=== PATIENT | female | born 1980 | race Caucasian/White ===

== ENCOUNTER 2019-12-10 15:21 | Emergency (ER) | payer OTHER, MEDICAID, SELFPAY ==
[2019-12-10 15:46] VITALS: BP 153/96; PULSE 80; RESP 13; TEMP 36.5; O2SAT 99
--- NOTE | 2019-12-10 16:40 | DI.US.S_ITS ---
PROCEDURE: US PELVIC COMPLETE INDICATIONS: SEVERE VAGINAL BLEEDING TECHNIQUE: Real-time scanning was performed of the pelvic organs, with image documentation. Additional endovaginal scanning was necessary due to incomplete visualization of the adnexal and endometrial structures by transabdominal scanning. COMPARISON: None. FINDINGS: Transabdominal scanning: Limited scanning through the kidneys shows no hydronephrosis. No pathologic free abdominal or pelvic fluid. Endovaginal scanning: Uterus: The uterus is normal in size and measures 9.3 x 4.6 x 6.0 cm. No focal myometrial lesions are identified. The endometrium measures up to approximately 8 mm in maximal combined thickness. No significant fluid is seen within the endometrial canal. An intrauterine contraceptive device appears to be appropriately positioned within the endometrial canal. The cervix is unremarkable. Ovaries: The right ovary measures 3.2 x 1.8 x 1.4 cm. The left ovary measures 2.6 x 1.3 x 1.4 cm. Both ovaries are normal in size. Small follicles are present on both ovaries. No ovarian cysts are evident. However, there are bilateral cystic foci identified within the adnexal regions measuring up to 1.7 cm on the left and 1.9 cm on the right, which are not well evaluated or characterized. IMPRESSION: 1. Unremarkable uterus. 2. The IUD appears to be in appropriate position. 3. Small bilateral adnexal cysts may represent paraovarian cysts versus less likely mild dilatation of the fallopian tubes. Dictated by: Travis Banks M.D. on 12/10/2019 at 16:49 Approved by: Travis Banks M.D. on 12/10/2019 at 16:52
[2019-12-10 18:27] LABS: Add Manual Diff / Slide Review NO; Basophils Absolute Auto 100 /uL (0-100); Basophils Percent Auto 0.8 % (0-2); Eosinophils Absolute Auto 300 /uL (0-450); Eosinophils Percent Auto 2.9 % (2-4); Hematocrit 41.8 % (36-46); Hemoglobin 14.3 g/dL (12.0-16.0); Lymphocytes Absolute Auto 2900 /uL (1100-4500); Lymphocytes Percent Auto 30.3 % (25-40); Mean Corpuscular HGB Conc 34.3 % (30-36); Mean Corpuscular Hemoglobin 30.3 PG (26-34); Mean Corpuscular Volume 88.4 fL (80-100); Monocytes Absolute Auto 800 /uL (0-900); Monocytes Percent Auto 8.3 % (3-14); Neutrophils Absolute Auto 5500 /uL (1500-7000); Neutrophils Percent Auto 57.7 % (50-75); Platelet Count 274 X10^3/uL (150-400); Red Blood Cell Count 4.72 X10^6/uL (4.0-5.2); Red Cell Distribution Width 14.1 % (11.6-14.8); White Blood Cell Count 9.6 X10^3/uL (4.5-11.0)
[2019-12-10 18:34] LABS: Alanine Aminotransferase 20 IU/L (<35); Albumin 4.8 g/dL (3.5-5.0); Albumin Globulin Ratio 1.6 (1.0-2.8); Alkaline Phosphatase 53 U/L (38-126); Aspartate Aminotransferase 28 IU/L (14-36); BUN Creatinine Ratio 23.3 (6-22); Bilirubin Total 0.4 mg/dL (0.2-1.3); Blood Urea Nitrogen 14 mg/dL (7-17); Calcium 9.8 mg/dL (8.4-10.2); Carbon Dioxide 25 mmol/L (22-32); Chloride 103 mmol/L (98-107); Estimated Glomerular Filt Rate > 60.0 mL/min (>60); Glucose 79 mg/dL (70-100); HEMOLYSIS 19 (0-50); Potassium 4.4 mmol/L (3.4-5.1); Sodium 140 mmol/L (137-145); Total Protein 7.8 g/dL (6.3-8.2)
[2019-12-10 18:54] VITALS: BP 136/74; PULSE 77; RESP 16; O2SAT 97
--- NOTE | 2019-12-10 19:17 | ED.FEMALEGU ---
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 She states that she has a copper IUD, and her primary Ob has an ultrasound ordered as she cannot feel her strings and is worried about displacement. She states she had unprotected sex after her PCP appointment. She had her last OB appointment on the of this month, had intercourse a few days later and then started having vaginal bleeding irregularly. She states that at this point she is bleeding through a tampon every 2 hours. She complains of lightheadedness, dizziness and related anxiety. She states that she has some rib pressure, but states that she is not in the emergency department for chest pain and does not want that evaluated. She denies any syncope. She is concerned about the possibility of , but took a negative test at home. Any abdominal pain. She denies any risk of sexually transmitted infections, states that she was just tested for everything 2 weeks ago. Denies any vaginal discharge. Denies any dysuria urgency or frequency Review of Systems <SAMANTHA Bobo - Last Filed: 12/10/19 19:56> Review of Systems Narrative: GENERAL: Denies chills, fatigue, malaise, fever, sweats. HEENT: Denies sinus pain, ear pain, sore throat, difficulty swallowing, dizziness. RESPIRATORY: Denies dyspnea, cough, wheezing, hemoptysis, sputum. CARDIOVASCULAR: Denies chest pain, palpitations, orthopnea, edema, GASTROINTESTINAL: Denies nausea, vomiting, abdominal pain, diarrhea, constipation, melena. : See HPI MUSCULOSKELETAL: denies weakness, joint pain, or bony pain SKIN: Denies rash, skin lesions, or other NEUROLOGIC: Denies weakness, headache, numbness, change in speech, confusion, seizures, incoordination. PSYCHIATRIC: No concerning psychosocial issues. 12 point review of systems is negative except for those stated above Patient History <SAMANTHA Bobo - Last Filed: 12/10/19 19:56> alcohol intake frequency: other Substance Use Type: does not use Exam <Emely KHUSHI Becerra - Last Filed: 12/10/19 19:56> Narrative Exam Narrative: GENERAL: This is a well-nourished, well-developed patient, no acute distress HEAD: Atraumatic. Normocephalic. No temporal or scalp tenderness. EYES: Pupils equal round and reactive. Extraocular motions intact. No scleral icterus. No injection or drainage. ENT: Nose without bleeding, purulent drainage or septal hematoma. Throat without erythema, tonsillar hypertrophy or exudate. Uvula midline. Airway patent. NECK: Trachea midline. No JVD or lymphadenopathy. Supple, nontender, no meningeal signs. CARDIOVASCULAR: Regular rate and rhythm without murmurs, gallops, or rubs. RESPIRATORY: Clear to auscultation. Breath sounds equal bilaterally. No wheezes, rales, or rhonchi. GASTROINTESTINAL: Abdomen soft, non-tender, nondistended. No hepato-splenomegaly, or palpable masses. No guarding. EXTREMITIES: No clubbing, cyanosis, or edema. No joint tenderness, effusion, or edema noted. BACK: Nontender without deformity or crepitance. No flank tenderness. NEURO: AOx3. SKIN: No rash or erythema. Initial Vital Signs Initial Vital Signs: Vital Signs Temperature 97.7 F 12/10/19 15:46 Pulse Rate 80 12/10/19 15:46 Respiratory Rate 13 12/10/19 15:46 Blood Pressure 153/96 H 12/10/19 15:46 Pulse Oximetry 99 12/10/19 15:46 <Neha Huerta DO - Last Filed: 12/11/19 08:04> Initial Vital Signs Initial Vital Signs: Vital Signs Temperature 97.7 F 12/10/19 15:46 Pulse Rate 80 12/10/19 15:46 Respiratory Rate 13 12/10/19 15:46 Blood Pressure 153/96 H 12/10/19 15:46 Pulse Oximetry 99 12/10/19 15:46 Course <Emely KHUSHI Becerra - Last Filed: 12/10/19 19:56> Orders Ordered: ED Orders 12/10/19 16:40 US pelvic complete Stat 12/10/19 18:11 Complete Blood Count AUTO DIFF Stat Comprehensive Metabolic Panel Stat Vital Signs Vital signs: Vital Signs - 8 hr 12/10/19 15:46 12/10/19 18:54 Temperature 97.7 F Pulse Rate 80 77 Respiratory Rate 13 16 Blood Pressure 153/96 H 136/74 Pulse Oximetry 99 97 <Neha Huerta DO - Last Filed: 12/11/19 08:04> Orders Ordered: ED Orders 12/10/19 16:40 US pelvic complete Stat 12/10/19 18:11 Complete Blood Count AUTO DIFF Stat Comprehensive Metabolic Panel Stat Vital Signs Vital signs: Vital Signs - 8 hr 12/10/19 15:46 12/10/19 18:54 Temperature 97.7 F Pulse Rate 80 77 Respiratory Rate 13 16 Blood Pressure 153/96 H 136/74 Pulse Oximetry 99 97 MDM - Female Genitourinary <ALEXANDR Bobo-BC - Last Filed: 12/10/19 19:56> Lab Data Result diagrams: 12/10/19 18:11 12/10/19 18:11 Labs: Lab Results 12/10/19 12/10/19 Range/Units 18:11 18:11 WBC 9.6 (4.5-11.0) X10^3/uL RBC 4.72 (4.0-5.2) X10^6/uL Hgb 14.3 (12.0-16.0) g/dL Hct 41.8 (36-46) % MCV 88.4 (80-100) fL MCH 30.3 (26-34) PG MCHC 34.3 (30-36) % RDW 14.1 (11.6-14.8) % Plt Count 274 (150-400) X10^3/uL Neut % (Auto) 57.7 (50-75) % Lymph % (Auto) 30.3 (25-40) % Howard % (Auto) 8.3 (3-14) % Eos % (Auto) 2.9 (2-4) % Baso % (Auto) 0.8 (0-2) % Neut # (Auto) 5500 (6392-6264) /uL Lymph # (Auto) 2900 (9519-5394) /uL Howard # (Auto) 800 (0-900) /uL Eos # (Auto) 300 (0-450) /uL Baso # (Auto) 100 (0-100) /uL Sodium 140 (137-145) mmol/L Potassium 4.4 (3.4-5.1) mmol/L Chloride 103 (98-107) mmol/L Carbon Dioxide 25 (22-32) mmol/L BUN 14 (7-17) mg/dL Creatinine 0.60 (0.52-1.04) mg/dL Estimated GFR > 60.0 (>60) mL/min BUN/Creatinine Ratio 23.3 H (6-22) Glucose 79 (70-100) mg/dL Calcium 9.8 (8.4-10.2) mg/dL Total Bilirubin 0.4 (0.2-1.3) mg/dL AST 28 (14-36) IU/L ALT 20 (<35) IU/L Alkaline Phosphatase 53 (38-126) U/L Total Protein 7.8 (6.3-8.2) g/dL Albumin 4.8 (3.5-5.0) g/dL Globulin 3.0 (1.7-4.1) g/dL Albumin/Globulin Ratio 1.6 (1.0-2.8) Point of Care Testing Test Results Negative Urine Dip Bedside Urine Glucose Negative Bedside Urine Bilirubin - Negative Bedside Urine Ketone + 15 Urine Specific [place] 1.015 Bedside Urine Occult Blood - Negative Bedside Urine pH 5.5 Bedside Urine Protein - Negative Bedside Urine Urobilinogen - Negative Bedside Urine Nitrite - Negative Bedside Urine Leukocytes - Negative Esterase Imaging Data US - DIRECTOR OF HOME CARE HOSPICE: Radiologist's Impression: [address] [place] [id number] Ultrasound Report Signed Patient: Linda WiseVivian#: [id number] : 1980Acct:[id number] Age/Sex: 39 / FDate of Service: 12/10/19 Loc: ED Accession Number: [id number] Procedure: US pelvic complete Ordering Provider: Emely Becerra- PROCEDURE: US PELVIC COMPLETE INDICATIONS: SEVERE VAGINAL BLEEDING TECHNIQUE: Real-time scanning was performed of the pelvic organs, with image documentation. Additional endovaginal scanning was necessary due to incomplete visualization of the adnexal and endometrial structures by transabdominal scanning. COMPARISON: None. FINDINGS: Transabdominal scanning: Limited scanning through the kidneys shows no hydronephrosis. No pathologic free abdominal or pelvic fluid. Endovaginal scanning: Uterus: The uterus is normal in size and measures 9.3 x 4.6 x 6.0 cm. No focal myometrial lesions are identified. The endometrium measures up to approximately 8 mm in maximal combined thickness. No significant fluid is seen within the endometrial canal. An intrauterine contraceptive device appears to be appropriately positioned within the endometrial canal. The cervix is unremarkable. Ovaries: The right ovary measures 3.2 x 1.8 x 1.4 cm. The left ovary measures 2.6 x 1.3 x 1.4 cm. Both ovaries are normal in size. Small follicles are present on both ovaries. No ovarian cysts are evident. However, there are bilateral cystic foci identified within the adnexal regions measuring up to 1.7 cm on the left and 1.9 cm on the right, which are not well evaluated or characterized. IMPRESSION: 1. Unremarkable uterus. 2. The IUD appears to be in appropriate position. 3. Small bilateral adnexal cysts may represent paraovarian cysts versus less likely mild dilatation of the fallopian tubes. Dictated by: Travis Banks M.D. on 12/10/2019 at 16:49 Approved by: Travis Banks M.D. on 12/10/2019 at 16:52 MDM Narrative Medical decision making narrative: The patient is a 39-year-old female who presents with a chief complaint of irregular vaginal bleeding for the past 9 days mid cycle. She is hemodynamically stable, not tachycardic, not hypotensive. She recently had a complete pelvic workup including Pap smear, STI testing and we do not see the need to repeat that at this point today. She is not anemic on lab work with a hemoglobin of 14. Given her concerns about her IUD placement, as well as severe bleeding, we did obtain an ultrasound which had no acute findings. The patient does not medications to help stop the bleeding. She would rather follow-up with her PCP in the next few days. I discussed at length coming back to the emergency department for any acute concerns. Patient states that she does not want further workup or evaluation given her periodic shortness breath complaints. Discussed at length that she can come back to the ER for any acute concerns. Patient has no questions or concerns upon discharge and states understanding of return precautions as well as follow-up care. <Neha Huerta, DO - Last Filed: 12/11/19 08:04> Lab Data Labs: Lab Results 12/10/19 12/10/19 Range/Units 18:11 18:11 WBC 9.6 (4.5-11.0) X10^3/uL RBC 4.72 (4.0-5.2) X10^6/uL Hgb 14.3 (12.0-16.0) g/dL Hct 41.8 (36-46) % MCV 88.4 (80-100) fL MCH 30.3 (26-34) PG MCHC 34.3 (30-36) % RDW 14.1 (11.6-14.8) % Plt Count 274 (150-400) X10^3/uL Neut % (Auto) 57.7 (50-75) % Lymph % (Auto) 30.3 (25-40) % Howard % (Auto) 8.3 (3-14) % Eos % (Auto) 2.9 (2-4) % Baso % (Auto) 0.8 (0-2) % Neut # (Auto) 5500 (4681-2837) /uL Lymph # (Auto) 2900 (9342-7320) /uL Howard # (Auto) 800 (0-900) /uL Eos # (Auto) 300 (0-450) /uL Baso # (Auto) 100 (0-100) /uL Sodium 140 (137-145) mmol/L Potassium 4.4 (3.4-5.1) mmol/L Chloride 103 (98-107) mmol/L Carbon Dioxide 25 (22-32) mmol/L BUN 14 (7-17) mg/dL Creatinine 0.60 (0.52-1.04) mg/dL Estimated GFR > 60.0 (>60) mL/min BUN/Creatinine Ratio 23.3 H (6-22) Glucose 79 (70-100) mg/dL Calcium 9.8 (8.4-10.2) mg/dL Total Bilirubin 0.4 (0.2-1.3) mg/dL AST 28 (14-36) IU/L ALT 20 (<35) IU/L Alkaline Phosphatase 53 (38-126) U/L Total Protein 7.8 (6.3-8.2) g/dL Albumin 4.8 (3.5-5.0) g/dL Globulin 3.0 (1.7-4.1) g/dL Albumin/Globulin Ratio 1.6 (1.0-2.8) Point of Care Testing Test Results Negative Urine Dip Bedside Urine Glucose Negative Bedside Urine Bilirubin - Negative Bedside Urine Ketone + 15 Urine Specific [place] 1.015 Bedside Urine Occult Blood - Negative Bedside Urine pH 5.5 Bedside Urine Protein - Negative Bedside Urine Urobilinogen - Negative Bedside Urine Nitrite - Negative Bedside Urine Leukocytes - Negative Esterase Discharge Plan Departure Patient Disposition: Home Clinical Impression: Vaginal bleeding Discharge Date/Time: 12/10/19 18:55 Instructions: DI for Vaginal Bleeding, DI for Abnormal Uterine Bleeding Activity Restrictions/Additional Instructions: Your ultrasound shows no acute abnormality Your lab work came back within normal limits Please follow-up with primary care provider. Please come back to the emergency department for any acute concerns Referrals: Dorie Santoyo MD [Primary Care Provider] -
== END 2019-12-10 18:55 | disposition home or self-care (01) ==
PROVIDERS: Emergency Provider Nurse Practitioner Family; PCP Obstetrics & Gynecology
DX: N93.9 Abnormal uterine and vaginal bleeding, unspecified (principal); Z30.431 Encounter for routine checking of intrauterine contraceptive device
CPT/HCPCS: 36415; 76830; 76856; 80053; 81003; 81025; 85025; 99283; 99284

== ENCOUNTER → 2021-07-03 11:06 | Outpatient (CLI) | payer BC, OTHER, MEDICAID, SELFPAY ==
[2021-07-03 13:51] LABS: COVID19 -Nasal RAPID Negative (Negative)
== END ==
PROVIDERS: PCP Registered Nurse; Visit Provider Nurse Practitioner
DX: Z01.812 Encounter for preprocedural laboratory examination (principal); Z20.822 Contact with and (suspected) exposure to COVID-19
CPT/HCPCS: 87635

== ENCOUNTER → 2021-07-03 11:15 | Outpatient (CLI) | payer OTHER, MEDICAID, SELFPAY ==
[2021-07-03 12:28] LABS: Add Manual Diff / Slide Review NO; Basophils Absolute Auto 100 /uL (0-100); Basophils Percent Auto 0.7 % (0-2); Eosinophils Absolute Auto 200 /uL (0-450); Eosinophils Percent Auto 2.6 % (2-4); Hematocrit 39.9 % (36-46); Hemoglobin 13.5 g/dL (12.0-16.0); Lymphocytes Absolute Auto 2800 /uL (1100-4500); Lymphocytes Percent Auto 30.4 % (25-40); Mean Corpuscular HGB Conc 33.9 % (30-36); Mean Corpuscular Hemoglobin 29.8 PG (26-34); Mean Corpuscular Volume 87.8 fL (80-100); Monocytes Absolute Auto 1000 /uL (0-900); Monocytes Percent Auto 11.2 % (3-14); Neutrophils Absolute Auto 5000 /uL (1500-7000); Neutrophils Percent Auto 55.1 % (50-75); Platelet Count 279 X10^3/uL (150-400); Red Blood Cell Count 4.54 X10^6/uL (4.0-5.2); Red Cell Distribution Width 14.3 % (11.6-14.8); White Blood Cell Count 9.1 X10^3/uL (4.5-11.0)
[2021-07-03 12:53] LABS: Alanine Aminotransferase 20 IU/L (<35); Albumin 4.4 g/dL (3.5-5.0); Albumin Globulin Ratio 1.6 (1.0-2.8); Alkaline Phosphatase 66 U/L (38-126); Aspartate Aminotransferase 29 IU/L (14-36); BUN Creatinine Ratio 21.4 (6-22); Bilirubin Total 0.3 mg/dL (0.2-1.3); Blood Urea Nitrogen 12 mg/dL (7-17); Calcium 9.2 mg/dL (8.4-10.2); Carbon Dioxide 25 mmol/L (22-32); Chloride 106 mmol/L (98-107); Cholesterol 188 mg/dL (140-199); Estimated Glomerular Filt Rate > 60.0 mL/min (>60); Globulin 2.8 g/dL (1.7-4.1); Glucose 93 mg/dL (70-100); HDL Cholesterol 44 mg/dL (40-60); HEMOLYSIS < 15 (0-50); LDL Cholesterol Calculated 126 mg/dL (<100); Potassium 4.4 mmol/L (3.4-5.1); Sodium 138 mmol/L (137-145); Total Protein 7.2 g/dL (6.3-8.2); Triglycerides 92 mg/dL (35-150)
== END ==
PROVIDERS: PCP Registered Nurse; Referring Provider Registered Nurse; Visit Provider Registered Nurse
DX: Z01.812 Encounter for preprocedural laboratory examination (principal); R03.0 Elevated blood-pressure reading, without diagnosis of hypertension; F41.9 Anxiety disorder, unspecified; B00.9 Herpesviral infection, unspecified; Z20.822 Contact with and (suspected) exposure to COVID-19; Z82.49 Family history of ischemic heart disease and other diseases of the circulatory system
CPT/HCPCS: 36415; 80053; 80061; 85025; 87635

== ENCOUNTER → 2021-07-04 15:10 | Outpatient (CLI) | payer OTHER, MEDICAID, SELFPAY ==
--- NOTE | 2021-07-04 15:13 | DI.NM.S_ITS ---
PROCEDURE: NM EXERCISE TREADMILL NON NUC COMPARISON: None. INDICATIONS: Family history of heart disease FINDINGS: the patient exercised for 7 minutes and 50 seconds reaching 101% of maximum predicted heart rate and 10.1 METS, DIXIE +11%. Mildly hypertensive response to exercise (resting BP 136/90mmHg, max BP 212/90mmHg). 2/10 chest pain at rest that persisted throughout the study. No ST changes with exercise. IMPRESSION: Low risk, normal treadmill ECG stress test. - Mildly reduced exercise tolerance. - Non-cardiac chest pain throughout the study. - Mildly hypertensive response to exercise (resting BP 136/90mmHg, max BP 212/90mmHg). - Target heart rate achieved. - No prior stress test available for comparison. Dictated by: Hebert Perez MD on 07/04/2021 at 16:10 Approved by: Hebert Perez MD on 07/04/2021 at 16:13
== END ==
PROVIDERS: PCP Registered Nurse; Referring Provider Registered Nurse; Visit Provider Registered Nurse
DX: R07.89 Other chest pain (principal); Z13.6 Encounter for screening for cardiovascular disorders; Z82.49 Family history of ischemic heart disease and other diseases of the circulatory system
CPT/HCPCS: 93017

== ENCOUNTER 2022-01-07 18:51 | Emergency (ER) | payer OTHER, MEDICAID, SELFPAY ==
[2022-01-07] VITALS (10 sets, daily range): BP systolic 129–167; BP diastolic 71–94; PULSE 73–89; RESP 13–24; TEMP 37.2; O2SAT 96–99; BMI 42.5
--- NOTE | 2022-01-07 19:00 | DI.RAD.S_ITS ---
PROCEDURE: XR CHEST 1V INDICATIONS: chest pain TECHNIQUE: One view of the chest was acquired. COMPARISON: None. FINDINGS: Surgical changes and devices: None. Lungs and pleura: Lungs are clear. No pleural effusions or pneumothorax. Mediastinum: Mediastinal contours appear normal. Heart size is normal. Bones and chest wall: No suspicious bony lesions. Overlying soft tissues appear unremarkable. IMPRESSION: No acute cardiopulmonary abnormality. Dictated by: Chalino Tolentino M.D. on 01/07/2022 at 19:34 Approved by: Chalino Tolentino M.D. on 01/07/2022 at 19:35
--- NOTE | 2022-01-07 19:46 | ED.CHESTPAIN ---
HPI - Chest Pain General Chief Complaint: Chest Pain Stated Complaint: Chest discomfort Time Seen by Provider: 01/07/22 19:07 Source: patient and EMS Mode of arrival: EMS Limitations: no limitations History of Present Illness HPI narrative: 41F nonsmoker without significant medical history presents by EMS for evaluation of chest pain that started this afternoon at about 2 or 230. She states that she had a stressful day including a long involved meeting at work and in the aftermath developed some sharp and stabbing left-sided chest pain that lasted 5-10 minutes, she felt a twinge in the left side of her neck as well. She has had some episodes of centralized chest pressure and also some tingling in her lower back. She denies any obvious provocation or palliation of the symptoms. She denies associated symptoms such as dizziness, weakness or lightheadedness. She denies any recent trauma or injury. She has had no fever or chills. She denies GI symptoms such as nausea, vomiting or diarrhea. She denies neurologic symptoms such as blurred vision, trouble speech or focal neurologic complaints. She denies any history of the same. She denies recent travel, history of blood clot or lower extremity pain, swelling or redness. She states her father at 43 years old from a cardiac arrest from unknown reason but states it was not heart attack. She has had a stress test within the past few months and had an echo a few years ago which were unremarkable. She had initially presented to an outside clinic and after hearing her symptoms she was given a full-dose aspirin and EMS was activated to transport her here. Her symptoms resolved nearly immediately upon her arrival Related Data Previous Rx's Medication Instructions Recorded valacyclovir 500 mg tablet 500 mg PO DAILY #90 tab 06/25/21 Allergies Allergy/AdvReac Type Severity Reaction Status Date / Time No Known Drug Allergies Allergy Verified 01/07/22 19:00 Review of Systems Review of Systems Narrative: GENERAL: Denies chills, fatigue, malaise, fever, sweats. HEENT: Denies sinus pain, ear pain, sore throat, difficulty swallowing, dizziness. RESPIRATORY: Denies dyspnea, cough, wheezing, hemoptysis, sputum. CARDIOVASCULAR: See HPI GASTROINTESTINAL: Denies nausea, vomiting, abdominal pain, diarrhea, constipation, melena. : Denies dysuria, frequency, incontinence, hematuria, urinary retention. MUSCULOSKELETAL: denies weakness, joint pain, or bony pain SKIN: Denies rash, skin lesions, or other NEUROLOGIC: Denies weakness, headache, numbness, change in speech, confusion, seizures, incoordination. PSYCHIATRIC: No concerning psychosocial issues. 12 point review of systems is negative except for those stated above Patient History Medical History IUD (intrauterine device) in place (normal spontaneous vaginal delivery) Social History Smoking Status: Never smoker Smoking Status: Never smoker alcohol intake frequency: other Substance Use Type: does not use Exam Narrative Exam Narrative: GENERAL: [41] year old patient appears stated age. Well-developed patient, in mild distress. HEAD: Atraumatic. Normocephalic. EYES: Pupils equal round and reactive. Extraocular motions intact. No scleral icterus. No injection or drainage. ENT: Nose without bleeding, purulent drainage. Throat without erythema, tonsillar hypertrophy or exudate. Airway patent. NECK: Trachea midline. Non tender CARDIOVASCULAR: Regular rate and rhythm without murmurs, gallops, or rubs. RESPIRATORY: Clear to auscultation. Breath sounds equal bilaterally. No wheezes, rales, or rhonchi. GASTROINTESTINAL: Abdomen soft, non-tender, nondistended. EXTREMITIES: No edema or joint tenderness. BACK: Nontender without deformity or crepitance. No flank tenderness. NEURO: AOx3. SKIN: No rash or erythema of visible areas Initial Vital Signs Initial Vital Signs: Vital Signs Temperature 98.9 F 01/07/22 18:55 Pulse Rate 82 01/07/22 18:55 Respiratory Rate 23 01/07/22 18:55 Blood Pressure 167/94 H 01/07/22 18:55 Pulse Oximetry 99 01/07/22 18:55 Course Orders Ordered: ED Orders 01/07/22 19:00 XR chest 1V Stat EKG-12 Lead Stat 01/07/22 19:36 CRP [C-Reactive Protein Quant] Stat Complete Blood Count AUTO DIFF Stat Comprehensive Metabolic Panel Stat ESR [Erythrocyte Sedimentation Rate] Stat Lipase Stat Magnesium Stat Partial Thromboplastin Time Stat Prothrombin Time INR Stat Troponin & CK Cardiac Panel Stat 01/07/22 22:34 Trop I [Troponin I] Stat Vital Signs Vital signs: Vital Signs - 8 hr 02/22/22 18:55 01/07/22 19:40 01/07/22 20:00 Temperature 98.9 F Pulse Rate 82 80 83 Respiratory Rate 23 23 24 Blood Pressure 167/94 H 141/89 H Pulse Oximetry 99 97 97 01/07/22 20:30 01/07/22 21:00 01/07/22 21:30 Temperature Pulse Rate 79 75 75 Respiratory Rate 17 16 16 Blood Pressure 136/79 133/79 129/71 Pulse Oximetry 96 97 97 01/07/22 22:00 01/07/22 22:30 01/07/22 23:00 Temperature Pulse Rate 75 76 73 Respiratory Rate 13 16 18 Blood Pressure 139/75 140/79 141/83 H Pulse Oximetry 99 97 98 01/07/22 23:35 Temperature Pulse Rate 89 Respiratory Rate 14 Blood Pressure 141/81 H Pulse Oximetry MDM - Chest Pain Lab Data Result diagrams: 01/07/22 19:36 01/07/22 19:36 Labs: Lab Results 01/07/22 01/07/22 01/07/22 Range/Units 19:36 19:36 19:36 WBC 10.7 (4.5-11.0) X10^3/uL RBC 4.73 (4.0-5.2) X10^6/uL Hgb 13.8 (12.0-16.0) g/dL Hct 41.6 (36-46) % MCV 88.0 (80-100) fL MCH 29.1 (26-34) PG MCHC 33.0 (30-36) % RDW 14.3 (11.6-14.8) % Plt Count 304 (150-400) X10^3/uL Neut % (Auto) 67.3 (50-75) % Lymph % (Auto) 22.3 L (25-40) % [place] % (Auto) 8.0 (3-14) % Eos % (Auto) 1.8 L (2-4) % Baso % (Auto) 0.6 (0-2) % Neut # (Auto) 7200 H (1226-0073) /uL Lymph # (Auto) 2400 (1688-8795) /uL [place] # (Auto) 900 (0-900) /uL Eos # (Auto) 200 (0-450) /uL Baso # (Auto) 100 (0-100) /uL ESR (0-20) MM/HR PT 10.7 (10.1-12.7) SECONDS INR 1.0 (0.9-1.3) APTT 34 (26.4-36.2) SECONDS Sodium 138 (137-145) mmol/L Potassium 3.8 (3.4-5.1) mmol/L Chloride 105 (98-107) mmol/L Carbon Dioxide 25 (22-32) mmol/L BUN 16 (7-17) mg/dL Creatinine 0.62 (0.52-1.04) mg/dL Estimated GFR > 60.0 (>60) mL/min BUN/Creatinine Ratio 25.8 H (6-22) Glucose 85 (70-100) mg/dL Calcium 9.1 (8.4-10.2) mg/dL Magnesium 1.8 (1.6-2.3) mg/dL Total Bilirubin 0.5 (0.2-1.3) mg/dL AST 29 (14-36) IU/L ALT 22 (<35) IU/L Alkaline Phosphatase 69 (38-126) U/L Total Creatine Kinase 43 (30-135) U/L CK-MB (CK-2) TNP CK-MB (CK-2) Rel Index TNP Troponin I < 0.012 (0.01-0.034) ng/mL C-Reactive Protein (<1.0) mg/dL Total Protein 7.6 (6.3-8.2) g/dL Albumin 4.6 (3.5-5.0) g/dL Globulin 3.0 (1.7-4.1) g/dL Albumin/Globulin Ratio 1.5 (1.0-2.8) Lipase 122 (23-300) U/L 01/07/22 01/07/22 01/07/22 Range/Units 19:36 19:36 22:34 WBC (4.5-11.0) X10^3/uL RBC (4.0-5.2) X10^6/uL Hgb (12.0-16.0) g/dL Hct (36-46) % MCV (80-100) fL MCH (26-34) PG MCHC (30-36) % RDW (11.6-14.8) % Plt Count (150-400) X10^3/uL Neut % (Auto) (50-75) % Lymph % (Auto) (25-40) % [place] % (Auto) (3-14) % Eos % (Auto) (2-4) % Baso % (Auto) (0-2) % Neut # (Auto) (0086-6202) /uL Lymph # (Auto) (6067-6515) /uL [place] # (Auto) (0-900) /uL Eos # (Auto) (0-450) /uL Baso # (Auto) (0-100) /uL ESR 8 (0-20) MM/HR PT (10.1-12.7) SECONDS INR (0.9-1.3) APTT (26.4-36.2) SECONDS Sodium (137-145) mmol/L Potassium (3.4-5.1) mmol/L Chloride (98-107) mmol/L Carbon Dioxide (22-32) mmol/L BUN (7-17) mg/dL Creatinine (0.52-1.04) mg/dL Estimated GFR (>60) mL/min BUN/Creatinine Ratio (6-22) Glucose (70-100) mg/dL Calcium (8.4-10.2) mg/dL Magnesium (1.6-2.3) mg/dL Total Bilirubin (0.2-1.3) mg/dL AST (14-36) IU/L ALT (<35) IU/L Alkaline Phosphatase (38-126) U/L Total Creatine Kinase (30-135) U/L CK-MB (CK-2) CK-MB (CK-2) Rel Index Troponin I < 0.012 (0.01-0.034) ng/mL C-Reactive Protein 0.6 (<1.0) mg/dL Total Protein (6.3-8.2) g/dL Albumin (3.5-5.0) g/dL Globulin (1.7-4.1) g/dL Albumin/Globulin Ratio (1.0-2.8) Lipase (23-300) U/L Imaging Data Chest x-ray: Radiologist's Impression: [address] [address] XRay Report Signed Patient: Ronel Wise MR#: [id number] : 1980 Acct:[id number] Age/Sex: 41 / F Date of Service: 01/07/22 Loc: ED Accession Number: [id number] ?? Procedure: XR chest 1V Ordering Provider: Kyle Suarez D.O. PROCEDURE:? XR CHEST 1V ? INDICATIONS:? chest pain ? TECHNIQUE:? One view of the chest was acquired.? ? COMPARISON:? None. ? FINDINGS:? ? Surgical changes and devices:? None.? ? Lungs and pleura:? Lungs are clear.? No pleural effusions or pneumothorax.? ? Mediastinum:? Mediastinal contours appear normal.? Heart size is normal.? ? Bones and chest wall:? No suspicious bony lesions.? Overlying soft tissues appear unremarkable.? ? IMPRESSION:? No acute cardiopulmonary abnormality. ? ? ? Dictated by: Chalino Tolentino M.D. on 01/07/2022 at 19:34 ? ? Approved by: Chalino Tolentino M.D. on 01/07/2022 at 19:35 ? MDM Narrative Medical decision making narrative: Multiple causes of chest pain considered including [place], PE, pneumothorax, pneumonia, aortic dissection, and pleurisy. Patient reports no radiation, no diaphoresis, no provocation with exertion, and no vomiting. She had multiple EKGs which show no obvious occlusive findings. Troponin x2 were negative. Other diagnoses such as pulmonary embolism considered, however history and physical would suggest this is unlikely. She has no tachycardia, hypoxemia, ongoing chest pain or complaint of SOB. Pericarditis considered but thought unlikely given lack of ongoing pain or inflammatory markers. Patient's blood pressure seemed to be elevated based on home measurements while she was symptomatic raising the likelihood that this could of been related to elevated blood pressure, perhaps due to the stressful meeting she had had at work was asymptomatic for the duration of her visit. She has been given extensive return precautions and questions have been answered to her apparent satisfaction Discharge Plan Departure Patient Disposition: Home Clinical Impression: Atypical chest pain Instructions: DI for Atypical Chest Pain Activity Restrictions/Additional Instructions: *You have been diagnosed with [atypical chest pain. As we discussed to her history and physical exam as well as labs, EKGs and imaging are very reassuring. There is no evidence of heart attack, blood clot, swelling around her heart or other severe life-threatening diagnosis at this point time. *What to do: *Please continue to take your regular medications as directed. [ ] New medication prescriptions sent to your pharmacy: [ ] [ ] New medication written as a paper prescription [ ] No new medications given *Please follow up with your primary care provider in 2-3 days, call for an appointment. Let them know you were seen in the Emergency Department and that we ask that you be seen in follow up. We will electronically transmit a record of today's note if your PCP is in our system *If you do not have a primary care provider please contact the [facility] Resource line at [phone]. They will ask some questions about your medical history and help get you set up with a doctor in the community. *Return to Emergency Department if you should have any new, worsening or concerning symptoms, such as [fever greater than 101 F, shaking chills, worsening pain, persistent vomiting or other bothersome symptoms] Prescriptions: No Action valacyclovir 500 mg tablet 500 mg PO DAILY Qty: 90 1RF Referrals: Yana Jade ARNP [Primary Care Provider] -
[2022-01-07 20:00] LABS: Alanine Aminotransferase 22 IU/L (<35); Albumin 4.6 g/dL (3.5-5.0); Albumin Globulin Ratio 1.5 (1.0-2.8); Alkaline Phosphatase 69 U/L (38-126); Aspartate Aminotransferase 29 IU/L (14-36); BUN Creatinine Ratio 25.8 (6-22); Bilirubin Total 0.5 mg/dL (0.2-1.3); Blood Urea Nitrogen 16 mg/dL (7-17); Calcium 9.1 mg/dL (8.4-10.2); Carbon Dioxide 25 mmol/L (22-32); Chloride 105 mmol/L (98-107); Creatine Kinase 43 U/L (30-135); Estimated Glomerular Filt Rate > 60.0 mL/min (>60); Glucose 85 mg/dL (70-100); HEMOLYSIS < 15 (0-50); Lipase 122 U/L (23-300); Magnesium 1.8 mg/dL (1.6-2.3); Potassium 3.8 mmol/L (3.4-5.1); Sodium 138 mmol/L (137-145); Total Protein 7.6 g/dL (6.3-8.2)
[2022-01-07 20:06] LABS: Add Manual Diff / Slide Review NO; Basophils Absolute Auto 100 /uL (0-100); Basophils Percent Auto 0.6 % (0-2); Eosinophils Absolute Auto 200 /uL (0-450); Eosinophils Percent Auto 1.8 % (2-4); Hematocrit 41.6 % (36-46); Hemoglobin 13.8 g/dL (12.0-16.0); Lymphocytes Absolute Auto 2400 /uL (1100-4500); Lymphocytes Percent Auto 22.3 % (25-40); Mean Corpuscular Hemoglobin 29.1 PG (26-34); Monocytes Absolute Auto 900 /uL (0-900); Neutrophils Absolute Auto 7200 /uL (1500-7000); Neutrophils Percent Auto 67.3 % (50-75); Platelet Count 304 X10^3/uL (150-400); Red Blood Cell Count 4.73 X10^6/uL (4.0-5.2); Red Cell Distribution Width 14.3 % (11.6-14.8); White Blood Cell Count 10.7 X10^3/uL (4.5-11.0)
[2022-01-07 20:11] LABS: Troponin I < 0.012 ng/mL (0.01-0.034)
[2022-01-07 20:15] LABS: Prothrombin Time 10.7 SECONDS (10.1-12.7)
[2022-01-07 20:18] LABS: PTT Partial Thromboplastin Tim 34 SECONDS (26.4-36.2)
[2022-01-07 20:50] LABS: C-Reactive Protein Quant 0.6 mg/dL (<1.0)
[2022-01-07 21:04] LABS: Erythrocyte Sedimentation Rate 8 MM/HR (0-20)
[2022-01-07 23:12] LABS: Troponin I < 0.012 ng/mL (0.01-0.034)
== END 2022-01-07 23:37 | disposition home or self-care (01) ==
PROVIDERS: Emergency Provider Emergency Medicine; PCP Registered Nurse
DX: R07.89 Other chest pain (principal)
CPT/HCPCS: 36415; 71045; 80053; 82550; 83690; 83735; 84484; 85025; 85610; 85651; 85730; 86140; 93005; 99283; 99284

== ENCOUNTER 2023-04-08 18:54 | Emergency (ER) | payer OTHER, MEDICAID, SELFPAY ==
[2023-04-08 19:06] VITALS: BP 154/76; PULSE 96; RESP 20; TEMP 36.9; O2SAT 98; BMI 41.8
--- NOTE | 2023-04-08 19:12 | DI.RAD.S_ITS ---
PROCEDURE: XR CHEST 1V INDICATIONS: chest pain TECHNIQUE: One view of the chest was acquired. COMPARISON: [facility], CR, XR CHEST 1V, 01/07/2022, 19:07. FINDINGS: Surgical changes and devices: None. Lungs and pleura: Lungs are clear. No pleural effusions or pneumothorax. Mediastinum: Mediastinal contours appear normal. Heart size is normal. Bones and chest wall: No suspicious bony lesions. Overlying soft tissues appear unremarkable. IMPRESSION: No acute cardiopulmonary abnormality Dictated by: Cl Santos M.D. on 04/08/2023 at 19:58 Approved by: Cl Santos M.D. on 04/08/2023 at 19:58
--- NOTE | 2023-04-08 19:29 | ED_ITS ---
HPI - Chest Pain General Chief Complaint: Chest Pain Stated Complaint: CHEST PAIN Time Seen by Provider: 04/08/23 19:19 Source: patient Mode of arrival: Family Vehicle Limitations: no limitations History of Present Illness HPI narrative: Patient is a 42-year-old female who is here for evaluation of a couple days of chest discomfort. Shortness of breath because of this. Also also having cough. Reports intermittent left lower extremity swelling. No fevers. No abdominal pain. No nausea vomiting. No radiation of the discomfort. Has not tried anything for the symptoms prior to arrival. Symptoms do not seem to be associated with eating. No fevers. No sore throat. No sinus congestion. Related Data Previous Rx's Medication Instructions Recorded valacyclovir 500 mg tablet 500 mg PO DAILY #90 tabs 10/17/22 Allergies Allergy/AdvReac Type Severity Reaction Status Date / Time No Known Drug Allergies Allergy Verified 04/08/23 19:11 Review of Systems Review of Systems ROS Unobtainable: All systems reviewed & are unremarkable except as noted in HPI and below Patient History Medical History IUD (intrauterine device) in place (normal spontaneous vaginal delivery) Social History Smoking Status: Never smoker Smoking Status: Never smoker alcohol intake frequency: other Substance Use Type: does not use Exam Initial Vital Signs Initial Vital Signs: Vital Signs Temperature 98.4 F 04/08/23 19:06 Pulse Rate 96 H 04/08/23 19:06 Respiratory Rate 20 04/08/23 19:06 Blood Pressure 154/76 H 04/08/23 19:06 Pulse Oximetry 98 04/08/23 19:06 Oxygen Delivery Method Room Air 04/08/23 19:06 Const General: cooperative, comfortable and No ill appearing HENMT Head: normal to inspection and normocephalic Resp Effort & Inspection: normal respiratory effort Auscultation: clear to auscultation bilaterally Cardio Rate: regular rate Rhythm: regular rhythm GI Inspection: normal to inspection and non-distended Skin General: no rashes or lesions noted Neuro General: patient alert, patient awake and moves all extremities Scores HEART Score Heart Score history: Slightly Suspicious Heart Score EKG: Normal Heart Score Age: < 45 years old Heart Score risk factors: No known risk factors Heart Score troponin: < or = to normal limit Heart Score Total: 0 Course Orders Ordered: ED Orders 04/08/23 19:12 XR chest 1V Stat EKG-12 Lead Stat 04/08/23 19:27 Complete Blood Count AUTO DIFF Stat Comprehensive Metabolic Panel Stat D Dimer Stat Lipase Stat Magnesium Stat PTT Partial Thromboplastin [place] Stat Test Serum,Qual Stat Prothrombin Time INR Stat Troponin & CK Cardiac Panel Stat 04/08/23 20:27 CT angio chest PE protocol Stat Discontinued Medications Aspirin (Aspirin 81 Mg Chew Tab) 324 mg PO NOW ONE Stop: 04/08/23 19:13 Last Admin: 04/08/23 19:38 Dose: 324 mg Documented By: EVAN Vital Signs Vital signs: Vital Signs - 8 hr 04/08/23 22:36 04/08/23 19:37 04/08/23 19:38 Temperature 97.6 F Pulse Rate 70 99 H 96 H Respiratory Rate 16 26 H 23 Blood Pressure 144/76 H Pulse Oximetry 98 97 98 Oxygen Delivery Method Room Air 04/08/23 19:38 04/08/23 20:00 04/08/23 20:00 Temperature Pulse Rate 87 Respiratory Rate 16 Blood Pressure 169/97 H 152/79 H Pulse Oximetry 97 Oxygen Delivery Method 04/08/23 20:30 04/08/23 20:30 Temperature Pulse Rate 82 Respiratory Rate 14 Blood Pressure 163/91 H Pulse Oximetry 98 Oxygen Delivery Method MDM - Chest Pain Lab Data Attestation: I reviewed the patient's lab results. 04/08/23 19:27 04/08/23 19:27 Labs: Lab Results 04/08/23 04/08/23 04/08/23 Range/Units 19:27 19:27 19:27 WBC 12.5 H (4.5-11.0) X10^3/uL RBC 4.36 (4.0-5.2) X10^6/uL Hgb 13.1 (12.0-16.0) g/dL Hct 37.6 (36-46) % MCV 86.1 (80-100) fL MCH 30.0 (26-34) PG MCHC 34.9 (30-36) % RDW 13.9 (11.6-14.8) % Plt Count 317 (150-400) X10^3/uL Neut % (Auto) 66.2 (50-75) % Lymph % (Auto) 23.3 L (25-40) % [place] % (Auto) 7.7 (3-14) % Eos % (Auto) 2.3 (2-4) % Baso % (Auto) 0.5 (0-2) % Neut # (Auto) 8300 H (4072-4735) /uL Lymph # (Auto) 2900 (7739-0003) /uL [place] # (Auto) 1000 H (0-900) /uL Eos # (Auto) 300 (0-450) /uL Baso # (Auto) 100 (0-100) /uL PT 12.0 (10.1-12.7) SECONDS INR 1.0 (0.9-1.3) APTT 31 (26-36) SECONDS D-Dimer (<500) ng/ml Sodium 137 (137-145) mmol/L Potassium TNP Chloride 106 (98-107) mmol/L Carbon Dioxide 22 (22-32) mmol/L BUN 14 (7-17) mg/dL Creatinine 0.85 (0.52-1.04) mg/dL Estimated GFR > 60 (>60) mL/min BUN/Creatinine Ratio 16.5 (6-22) Glucose 122 H (70-100) mg/dL Calcium 9.0 (8.4-10.2) mg/dL Magnesium 1.8 (1.6-2.3) mg/dL Total Bilirubin 0.5 (0.2-1.3) mg/dL AST TNP ALT 23 (<35) IU/L Alkaline Phosphatase 48 (38-126) U/L Total Creatine Kinase 70 (30-135) U/L CK-MB (CK-2) TNP CK-MB (CK-2) Rel Index TNP Troponin I < 0.012 (0.01-0.034) ng/mL Total Protein 7.4 (6.3-8.2) g/dL Albumin 4.3 (3.5-5.0) g/dL Globulin 3.1 (1.7-4.1) g/dL Albumin/Globulin Ratio 1.4 (1.0-2.8) Lipase 106 (23-300) U/L Serum , Qual (Negative) 04/08/23 04/08/23 Range/Units 19:27 19:27 WBC (4.5-11.0) X10^3/uL RBC (4.0-5.2) X10^6/uL Hgb (12.0-16.0) g/dL Hct (36-46) % MCV (80-100) fL MCH (26-34) PG MCHC (30-36) % RDW (11.6-14.8) % Plt Count (150-400) X10^3/uL Neut % (Auto) (50-75) % Lymph % (Auto) (25-40) % [place] % (Auto) (3-14) % Eos % (Auto) (2-4) % Baso % (Auto) (0-2) % Neut # (Auto) (3409-7392) /uL Lymph # (Auto) (8727-2187) /uL [place] # (Auto) (0-900) /uL Eos # (Auto) (0-450) /uL Baso # (Auto) (0-100) /uL PT (10.1-12.7) SECONDS INR (0.9-1.3) APTT (26-36) SECONDS D-Dimer 851 H (<500) ng/ml Sodium (137-145) mmol/L Potassium Chloride (98-107) mmol/L Carbon Dioxide (22-32) mmol/L BUN (7-17) mg/dL Creatinine (0.52-1.04) mg/dL Estimated GFR (>60) mL/min BUN/Creatinine Ratio (6-22) Glucose (70-100) mg/dL Calcium (8.4-10.2) mg/dL Magnesium (1.6-2.3) mg/dL Total Bilirubin (0.2-1.3) mg/dL AST ALT (<35) IU/L Alkaline Phosphatase (38-126) U/L Total Creatine Kinase (30-135) U/L CK-MB (CK-2) CK-MB (CK-2) Rel Index Troponin I (0.01-0.034) ng/mL Total Protein (6.3-8.2) g/dL Albumin (3.5-5.0) g/dL Globulin (1.7-4.1) g/dL Albumin/Globulin Ratio (1.0-2.8) Lipase (23-300) U/L Serum , Qual Negative (Negative) Imaging Data Chest x-ray: Radiologist's Impression: PROCEDURE:? XR CHEST 1V ? INDICATIONS:? chest pain ? TECHNIQUE:? One view of the chest was acquired.? ? COMPARISON:? [facility], CR, XR CHEST 1V, 01/07/2022, 19:07. ? FINDINGS:? ? Surgical changes and devices:? None.? ? Lungs and pleura:? Lungs are clear.? No pleural effusions or pneumothorax.? ? Mediastinum:? Mediastinal contours appear normal.? Heart size is normal.? ? Bones and chest wall:? No suspicious bony lesions.? Overlying soft tissues appear unremarkable.? ? IMPRESSION:? No acute cardiopulmonary abnormality CT scan - chest: Radiologist's Impression: PROCEDURE:? CT ANGIO CHEST PE PROTOCOL ? INDICATIONS:? SOB and tachycardia ? TECHNIQUE:? After the administration of intravenous contrast, 2 mm thick sections acquired from the pulmonary apices to the posterior costophrenic angles.? 3-dimensional maximum intensity projection (MIP) coronal and sagittal reformats were then acquired through the thorax.? For radiation dose reduction, the following was used:? automated exposure control, adjustment of mA and/or kV according to patient size.? ? COMPARISON:? None. ? FINDINGS:? Image quality:? There is mild motion artifact.? ? Pulmonary arteries:? Pulmonary arteries demonstrate no intraluminal filling defects to suggest central pulmonary embolism.? Evaluation of distal subsegmental pulmonary arteries is limited by motion artifact. ? Lower Neck: No lymphadenopathy by size criteria. Thyroid:? Visualized thyroid demonstrates no discrete nodules. Axillae: No lymphadenopathy by size criteria. Chest Wall:? Unremarkable.? Bones: Visualized osseous structures demonstrate no suspicious lesions. ? Lungs and Airways:? No acute consolidation.? No suspicious pulmonary nodules.? There is mild dependent atelectasis.? The trachea and central airways are patent. Pleura: No pneumothorax or pleural effusions.? ? Heart: Heart size is normal.? No pericardial effusion. Thoracic Vessels: The thoracic aorta is normal in size.? Mediastinum and Tiny: No lymphadenopathy by size criteria. Esophagus: No wall thickening. No hiatal hernia. ? Abdomen:? Visualized upper abdominal solid organs appear normal in the early arterial phase of enhancement.? ? IMPRESSION:? ? 1.? No evidence of central pulmonary embolism. ? 2.? No acute airspace consolidation.? ECG Data Attestation: I personally reviewed and interpreted this ECG as follows: Interpretation: Sinus tachycardia Ventricular rate of 101 Normal axis Normal QRS Normal QTC No ST T wave changes MDM Narrative Medical decision making narrative: Low risk heart score. Chest x-ray is unremarkable. Did have a positive D-dimer for subsequent CTA shows no signs of pulmonary embolism. EKG is nonischemic. Troponin is negative greater than 6 hours after the onset of symptoms. Low suspicion for ACS. No indication for antibiotics. We did discuss the possibility this is a GI source. Discussed using medications for this over the next couple days to see whether not her symptoms improve. She was given return precautions and follow-up instructions. She expressed understanding and agreement. Discharge Plan Departure Patient Disposition: Home Clinical Impression: Atypical chest pain Instructions: DI for Atypical Chest Pain Activity Restrictions/Additional Instructions: I do recommend that you start on a medicine called famotidine/Pepcid. You can purchase this [id number]. You can also try the liquid medicine such as Maalox. I recommend that you contact your primary doctor for follow-up. Return to the emergency department for new or worsening symptoms. Prescriptions: No Action valacyclovir 500 mg tablet 500 mg PO DAILY Qty: 90 0RF Rx Instructions: NEED TO ESTABLISH CARE WITH NEW PROVIDER FOR FURTHER REFILLS. 10/17/22 Referrals: Miscellaneous,DoctorMD [Primary Care Provider] - Stand Alone Forms: Patient Portal/API
[2023-04-08 19:37] VITALS: PULSE 99; RESP 26; O2SAT 97
[2023-04-08 19:37] LABS: Add Manual Diff / Slide Review NO; Basophils Absolute Auto 100 /uL (0-100); Basophils Percent Auto 0.5 % (0-2); Eosinophils Absolute Auto 300 /uL (0-450); Eosinophils Percent Auto 2.3 % (2-4); Hematocrit 37.6 % (36-46); Hemoglobin 13.1 g/dL (12.0-16.0); Lymphocytes Absolute Auto 2900 /uL (1100-4500); Lymphocytes Percent Auto 23.3 % (25-40); Mean Corpuscular HGB Conc 34.9 % (30-36); Mean Corpuscular Volume 86.1 fL (80-100); Monocytes Absolute Auto 1000 /uL (0-900); Monocytes Percent Auto 7.7 % (3-14); Neutrophils Absolute Auto 8300 /uL (1500-7000); Neutrophils Percent Auto 66.2 % (50-75); Platelet Count 317 X10^3/uL (150-400); Red Blood Cell Count 4.36 X10^6/uL (4.0-5.2); Red Cell Distribution Width 13.9 % (11.6-14.8); White Blood Cell Count 12.5 X10^3/uL (4.5-11.0)
[2023-04-08 19:38] VITALS: BP 169/97; PULSE 96; RESP 23; O2SAT 98
[2023-04-08] MEDS: ASPIRIN 81 MG CHEW TAB 324 MG PO (19:38)
[2023-04-08 19:45] LABS: PTT Partial Thromboplastin Tim 31 SECONDS (26-36)
[2023-04-08 19:47] LABS: Alanine Aminotransferase 23 IU/L (<35); Albumin 4.3 g/dL (3.5-5.0); Albumin Globulin Ratio 1.4 (1.0-2.8); Alkaline Phosphatase 48 U/L (38-126); BUN Creatinine Ratio 16.5 (6-22); Bilirubin Total 0.5 mg/dL (0.2-1.3); Blood Urea Nitrogen 14 mg/dL (7-17); Carbon Dioxide 22 mmol/L (22-32); Chloride 106 mmol/L (98-107); Creatine Kinase 70 U/L (30-135); Estimated Glomerular Filt Rate > 60 mL/min (>60); Globulin 3.1 g/dL (1.7-4.1); Glucose 122 mg/dL (70-100); Lipase 106 U/L (23-300); Magnesium 1.8 mg/dL (1.6-2.3); Sodium 137 mmol/L (137-145); Total Protein 7.4 g/dL (6.3-8.2)
[2023-04-08 19:50] LABS: D Dimer 851 ng/ml (<500)
[2023-04-08 19:58] LABS: Troponin I < 0.012 ng/mL (0.01-0.034)
[2023-04-08 20:00] VITALS: BP 152/79; PULSE 87; RESP 16; O2SAT 97
[2023-04-08 20:00] LABS: HEMOLYSIS 107 (0-50)
--- NOTE | 2023-04-08 20:27 | DI.CT.S_ITS ---
PROCEDURE: CT ANGIO CHEST PE PROTOCOL INDICATIONS: SOB and tachycardia TECHNIQUE: After the administration of intravenous contrast, 2 mm thick sections acquired from the pulmonary apices to the posterior costophrenic angles. 3-dimensional maximum intensity projection (MIP) coronal and sagittal reformats were then acquired through the thorax. For radiation dose reduction, the following was used: automated exposure control, adjustment of mA and/or kV according to patient size. COMPARISON: None. FINDINGS: Image quality: There is mild motion artifact. Pulmonary arteries: Pulmonary arteries demonstrate no intraluminal filling defects to suggest central pulmonary embolism. Evaluation of distal subsegmental pulmonary arteries is limited by motion artifact. Lower Neck: No lymphadenopathy by size criteria. Thyroid: Visualized thyroid demonstrates no discrete nodules. Axillae: No lymphadenopathy by size criteria. Chest Wall: Unremarkable. Bones: Visualized osseous structures demonstrate no suspicious lesions. Lungs and Airways: No acute consolidation. No suspicious pulmonary nodules. There is mild dependent atelectasis. The trachea and central airways are patent. Pleura: No pneumothorax or pleural effusions. Heart: Heart size is normal. No pericardial effusion. Thoracic Vessels: The thoracic aorta is normal in size. Mediastinum and Tiny: No lymphadenopathy by size criteria. Esophagus: No wall thickening. No hiatal hernia. Abdomen: Visualized upper abdominal solid organs appear normal in the early arterial phase of enhancement. IMPRESSION: 1. No evidence of central pulmonary embolism. 2. No acute airspace consolidation. Dictated by: Luis Enrique Quiroz M.D. on 04/08/2023 at 22:07 Approved by: Luis Enrique Quiroz M.D. on 04/08/2023 at 22:09
[2023-04-08 20:30] VITALS: BP 163/91; PULSE 82; RESP 14; O2SAT 98
[2023-04-08 20:44] LABS: Pregnancy Test Serum,Qual Negative (Negative)
[2023-04-08 22:36] VITALS: BP 144/76; PULSE 70; RESP 16; TEMP 36.4; O2SAT 98
== END 2023-04-08 22:38 | disposition home or self-care (01) ==
PROVIDERS: Emergency Provider Emergency Medicine
DX: R07.89 Other chest pain (principal)
CPT/HCPCS: 36415; 71045; 71275; 80053; 82550; 83690; 83735; 84484; 84703; 85025; 85379; 85610; 85730; 93005; 93010; 99284; Q9967

== ENCOUNTER → 2023-11-07 17:25 | Outpatient (CLI) | payer OTHER, SELFPAY ==
[2023-11-07 18:15] LABS: Influenza A - CEPHEID Flu A NEGATIVE (NEGATIVE); Influenza B - CEPHEID Flu B NEGATIVE (NEGATIVE); Respiratory Syncytial Virus POSITIVE (Negative)
[2023-11-07 18:33] LABS: COVID-19 CEPHEID 4-PLEX PCR Negative (Negative)
== END ==
PROVIDERS: PCP Internal Medicine; Visit Provider Nurse Practitioner Family
DX: R05.1 Acute cough (principal)
CPT/HCPCS: 0241U

== ENCOUNTER → 2023-11-07 17:25 | Outpatient (CLI) | payer OTHER, SELFPAY ==
--- NOTE | 2023-11-07 17:27 | DI.RAD.S_ITS ---
PROCEDURE: XR CHEST 2V INDICATIONS: Cough TECHNIQUE: 2 views of the chest were acquired. COMPARISON: [facility], CR, XR CHEST 1V, 04/08/2023, 19:19. [facility], CR, XR CHEST 1V, 01/07/2022, 19:07. FINDINGS: Surgical changes and devices: None. Lungs and pleura: Lungs are clear. No pleural effusions or pneumothorax. Mediastinum: Mediastinal contours are normal. Heart size is normal. Bones and chest wall: No suspicious bony abnormalities. Soft tissues appear unremarkable. IMPRESSION: No acute cardiopulmonary abnormality is seen. Dictated by: Johnny Milligan M.D. on 11/07/2023 at 19:21 Approved by: Johnny Milligan M.D. on 11/07/2023 at 19:22
== END ==
PROVIDERS: PCP Internal Medicine; Referring Provider Nurse Practitioner Family; Visit Provider Nurse Practitioner Family
DX: R05.1 Acute cough (principal)
CPT/HCPCS: 0241U; 71046